=== PATIENT | male | born 1960 | race Caucasian/White ===

== ENCOUNTER 2017-08-04 11:34 | Day surgery (SDC) | payer OTHER ==
[2017-08-04] MEDS ORDERED: LIDOCAINE 4% SOLUTION 50 ML BTL (12:38)
[2017-08-04] MEDS ORDERED: PANTOPRAZOLE 40 MG INJ IV (13:30)
[2017-08-04] MEDS ORDERED: LEVOFLOXACIN 500MG/D5W (PMX) 100 ML IVPB (13:30)
[2017-08-04] MEDS ORDERED: FENTAnyl 50 MCG/ML VIAL (13:32)
[2017-08-04] MEDS ORDERED: MIDAZOLAM 1 MG/ML 2 ML INJ ×2 (13:32)
== END 2017-08-04 14:54 | disposition home or self-care (01) ==
LOC: GIL 11:34
DX: Z12.11 Encounter for screening for malignant neoplasm of colon (principal); K26.9 Duodenal ulcer, unspecified as acute or chronic, without hemorrhage or perforation; K25.9 Gastric ulcer, unspecified as acute or chronic, without hemorrhage or perforation; E78.5 Hyperlipidemia, unspecified
CPT/HCPCS: 43239